=== PATIENT | female | born 1985 | race Caucasian/White ===

== ENCOUNTER 2018-07-02 20:04 | Emergency (ER) | payer OTHER ==
[~2018-07-02] VITALS: Ht 154.9 cm; Wt 87.5 kg
[2018-07-02 20:11] VITALS: Ht 154.9 cm; Wt 87.5 kg
[2018-07-02] MEDS ORDERED: BROMFED-DM COU473 ML PO (20:13)
[2018-07-02] MEDS ORDERED: VENTOLIN HFA18 GM INH (20:13)
[2018-07-02] MEDS ORDERED: GEODON60 MG PO (20:14)
[2018-07-02] MEDS ORDERED: EFFEXOR XR150 MG PO (20:14)
[2018-07-02] MEDS ORDERED: TRILEPTAL600 MG PO (20:14)
[2018-07-02] MEDS ORDERED: RESTORIL15 MG PO (20:14)
[2018-07-02] MEDS ORDERED: VALIUM5 MG PO (20:15)
[2018-07-02] MEDS ORDERED: EFFEXOR XR75 MG PO (20:15)
[2018-07-02] MEDS ORDERED: ZPAK PO (23:28)
[2018-07-02] MEDS ORDERED: ALBUTEROL SULF8.5 GM INH (23:28)
[2018-07-02 23:51] VITALS: BP 115/74
== END 2018-07-02 23:51 | disposition home or self-care (01) ==
LOC: D.ER 20:04
DX: J40 Bronchitis, not specified as acute or chronic (principal)

== ENCOUNTER 2019-12-17 21:17 | Emergency (ER) | payer SELFPAY ==
[~2019-12-17] VITALS: Ht 154.9 cm; Wt 48.6 kg
[~2019-12-17 21:17] MED LIST: ALBUTEROL SULF8.5 GM INH; BROMFED-DM COU473 ML PO; EFFEXOR XR150 MG PO; EFFEXOR XR75 MG PO; GEODON60 MG PO; RESTORIL15 MG PO; TRILEPTAL600 MG PO; VALIUM5 MG PO; VENTOLIN HFA18 GM INH; ZPAK PO
[2019-12-17 21:24] VITALS: Ht 154.9 cm; Wt 48.6 kg
[2019-12-17] MEDS ORDERED: BUPROPION XL300 MG (21:28)
[2019-12-17] MEDS ORDERED: GEODON80 MG PO (21:28)
[2019-12-17] MEDS ORDERED: VALIUM5 MG PO (21:29)
[2019-12-17] MEDS ORDERED: TOPAMAX100 MG PO (21:29)
[2019-12-17 22:00] LABS: BASOPHILS 0.2 % (0-2); EOSINOPHILS 0.4 % (0-7); HEMATOCRIT 49.1 % (36.0-48.0); HEMOGLOBIN 16.9 g/dL (12-16); IMMATURE GRANULOCYTES 0.4 % (0-5); LYMPHOCYTES 15.8 % (15-50); MCH 32.5 pg (26.0-34.0); MCHC 34.4 g/dL (31.0-37.0); MCV 94.4 fL (80.0-100.0); MEAN PLATELET VOLUME 9.7 fL (7.4-10.4); MONOCYTES 7.7 % (2-11); NEUTROPHILS 75.5 % (40-80); RDW 12.4 % (11.5-14.5); WBC 9.3 10x3/uL (4.8-10.8)
[2019-12-17 22:01] LABS: PLATELET COUNT 268 10x3/uL (130-400)
[2019-12-17 22:02] LABS: BILIRUBIN NEGATIVE (NEGATIVE); GLUCOSE NEGATIVE (NEGATIVE); KETONE NEGATIVE (NEGATIVE); NITRITE NEGATIVE (NEGATIVE); SPECIFIC GRAVITY 1.025 (1.005-1.020); UROBILINOGEN NORMAL (NORMAL)
[2019-12-17 22:09] LABS: UDS - AMPHET NEGATIVE QUAL (NEGATIVE); UDS - BARB NEGATIVE QUAL (NEGATIVE); UDS - BENZO POSITIVE QUAL (NEGATIVE); UDS - COCAINE NEGATIVE QUAL (NEGATIVE); UDS - OPIATE NEGATIVE QUAL (NEGATIVE); UDS - PCP NEGATIVE QUAL (NEGATIVE); UDS - THC NEGATIVE QUAL (NEGATIVE)
[2019-12-17 22:10] LABS: CALC OSMOLALITY 274 mosm/kg (275-300); CARBON DIOXIDE 21.3 mmol/L (21.0-32.0); CHLORIDE - SERUM 104 mmol/L (98-107); CREATININE - SERUM 1.2 mg/dL (0.6-1.3); GLUCOSE 118 mg/dL (74-106); POTASSIUM - SERUM 3.5 mmol/L (3.5-5.1); SODIUM 137 mmol/L (136-145); UREA NITROGEN 12 mg/dL (7-18); eGFR NON AFRICAN AMERICAN 55 mL/min (90-120)
[2019-12-17 22:19] LABS: ALKALINE PHOSPHATASE 73 U/L (30-120); ALT (SGPT) 79 U/L (10-68); BILIRUBIN - TOTAL 0.55 mg/dL (0.2-1.3); C-REACTIVE PROTEIN 0.4 mg/dL (0.0-0.9); PROTEIN - SERUM 7.5 g/dL (6.4-8.2); TROPONIN-I < 0.017 ng/mL (0.000-0.060)
[2019-12-17 23:01] LABS: ERYTHROCYTE SEDIMENTATION RATE 2 mm/hr (0-20)
[2019-12-18 00:59] VITALS: BP 122/73
== END 2019-12-18 01:00 | disposition home or self-care (01) ==
LOC: D.ER 21:17
PROVIDERS: Emergency Medicine
DX: R20.0 Anesthesia of skin (principal); R20.2 Paresthesia of skin; M79.642 Pain in left hand; M79.641 Pain in right hand

== ENCOUNTER 2020-09-26 22:09 | Emergency (ER) | payer MEDICARE ==
[~2020-09-26] VITALS: Ht 154.9 cm; Wt 57.7 kg
[~2020-09-26 22:09] MED LIST changes: +BUPROPION XL300 MG; +GEODON80 MG PO; +TOPAMAX100 MG PO
[2020-09-26 22:16] VITALS: BP 135/84; Ht 154.9 cm; Wt 57.7 kg
[2020-09-26] MEDS ORDERED: CYCLOBENZAPRINE10 MG PO (22:32)
[2020-09-26] MEDS ORDERED: HYDROCODON-ACE1 EAC7 PO (23:10)
== END 2020-09-26 23:48 | disposition home or self-care (01) ==
LOC: D.ER 22:09
DX: S16.1XXA Strain of muscle, fascia and tendon at neck level, initial encounter (principal); S09.90XA Unspecified injury of head, initial encounter; V89.2XXA Person injured in unspecified motor-vehicle accident, traffic, initial encounter; Y93.9 Activity, unspecified; Y92.9 Unspecified place or not applicable; R51.9 Headache, unspecified; M25.532 Pain in left wrist